=== PATIENT | male | born 1985 | race Caucasian/White ===

== ENCOUNTER 2020-12-24 09:47 | Outpatient (REF) | payer OTHER, SELFPAY ==
--- NOTE | 2020-12-24 09:56 | ECG_ITS ---
Test Reason : CHEST PAIN Blood Pressure : / mmHG Vent. Rate : 071 BPM Atrial Rate : 071 BPM P-R Int : 148 ms QRS Dur : 078 ms QT Int : 366 ms P-R-T Axes : 058 054 036 degrees QTc Int : 397 ms Normal sinus rhythm Normal ECG When compared with ECG of 15-DEC-2009 01:14, No significant change was found Referred By: Clay Angelo Electronically Signed By:ALEX CEE
[2020-12-24 10:45] LABS: MANUAL DIFF FLAG NO
[2020-12-24 11:02] LABS: Basophils Percent Auto 1.1 % (0-2); Eosinophils Absolute Auto 0.1 X10*3/uL (0.0-0.4); Eosinophils Percent Auto 3.8 % (0-4); Hematocrit 44.3 % (42-52); Hemoglobin 15.3 g/dl (14.0-18.0); Imm Gran Abs Auto 0.01 X10*3/uL (0.00-0.03); Imm Gran Pct Auto 0.3 % (0.0-0.4); Lymphocytes Absolute Auto 1.5 X10*3/uL (1.2-4.9); Lymphocytes Percent Auto 41.8 % (20-40); Mean Corpuscular HGB Conc 34.5 g/dl (31.0-36.0); Mean Corpuscular Hemoglobin 31.8 pg (27.0-33.0); Mean Corpuscular Volume 92.1 fL (80-98); Mean Platelet Volume 9.1 fL (9.4-12.4); Monocytes Absolute Auto 0.3 X10*3/uL (0.1-1.2); Neutrophils Absolute Auto 1.6 X10*3/uL (2.0-8.3); Platelet Count 190 X10*3/uL (160-400); Red Blood Count 4.81 X10*6/uL (4.60-5.80); Red Cell Distribution Width 11.4 % (11.0-16.0); White Blood Count 3.7 X10*3/uL (4.8-10.8)
[2020-12-24 11:16] LABS: Alanine Aminotransferase 29 U/L (0-40); Albumin Level 4.5 g/dL (3.5-5.0); Alkaline Phosphatase 73 U/L (39-117); Anion Gap 10 (12-20); Aspartate Amino Transferase 21 U/L (5-37); Bilirubin Total 0.6 mg/dL (0.0-1.0); Blood Urea Nitrogen 16 mg/dL (9-16); Calcium 9.2 mg/dL (8.4-10.2); Carbon Dioxide 26 mmol/L (22-29); Chloride 105 mmol/L (96-108); Cholesterol 202 mg/dL; Estimated Glomerular Filt Rate > 60; Glucose Fasting 98 mg/dL (60-99); HDL Cholesterol 53 mg/dL; LDL Cholesterol Calculated 135 mg/dl; Potassium 4.1 mmol/L (3.3-5.1); Sodium 137 mmol/L (135-145); Total Protein 7.2 g/dL (6.5-8.0); Triglycerides 73 mg/dL
[2020-12-24 11:23] LABS: Thyroid Stimulating Hormone 1.07 uIU/mL (0.32-4.0)
== END 2020-12-24 09:48 | disposition home or self-care (01) ==
LOC: HO.LAB 09:47
PROVIDERS: PCP Internal Medicine; Visit Provider Internal Medicine
DX: Z00.00 Encounter for general adult medical examination without abnormal findings (principal); E03.9 Hypothyroidism, unspecified; E11.9 Type 2 diabetes mellitus without complications
CPT/HCPCS: 36415; 80053; 80061; 84443; 85025; 93005

== ENCOUNTER 2021-04-20 13:29 | Emergency (ER) | payer OTHER, SELFPAY ==
--- NOTE | ~2021-04-20 | XR_ITS ---
EXAMINATION: XR CHEST CLINICAL INFORMATION: Cough with pneumonia COMPARISON: October 09, 2012 TECHNIQUE: AP portable view of the chest was obtained. FINDINGS: No significant abnormality is noted involving the heart, lungs, mediastinum, bony thorax or soft tissues. XR/XR chest 1V IMPRESSION: No acute disease.
[2021-04-20 13:59] VITALS: BP 116/68; PULSE 93; RESP 19; TEMP 37.2; O2SAT 98; BMI 25.1
--- NOTE | 2021-04-20 14:35 | ED_ITS ---
HPI - General Adult General Chief complaint: Dyspnea Stated complaint: pt tested positive for covid, difficulty breathing Time Seen by Provider: 04/20/21 13:51 Related Data Allergies Allergy/AdvReac Type Severity Reaction Status Date / Time No Known Allergies Allergy Verified 04/20/21 13:59 [facility] Family History Family History (Updated 01/23/21 @ 10:43 by Sosa Saha RMA) Mother No problems noted. Father No problems noted. Social History Social History (Updated 12/24/20 @ 09:20 by Natali Alva, [facility]) Alcohol intake: current Alcohol intake frequency: holidays/special occasions only Advance Directives: No Advance Directives Information Provided: No Physical Exam Vital Signs: Vital Signs: Last Vital Signs Temp 98.9 F 04/20/21 13:59 Pulse 93 04/20/21 13:59 Resp 19 04/20/21 13:59 BP 116/68 04/20/21 13:59 Pulse Ox 98 04/20/21 13:59 Body Mass Index 25.1 Course Course Course Narrative: Patient presents to the ED for constant coughing due to being covid+. Patient vital signs are stable. patient main complaint is coughing. patient denies any pleuretic chest pain. Chest xray ordered Discharge Plan Discharge Clinical Impression: COVID-19 Patient Disposition: Home, Self-Care Instructions: COVID-19 (Coronavirus Disease 2019) (ED) Additional Instructions: Strict home quarantine until all symptoms has resolved. Onset of symptoms greater than 1 week. No fever for at least 48 hours. Referrals: Clay Angelo MD [Primary Care Provider] - 2 days Stand Alone Forms: Work/School Release Interventions: ED Discharge Assessment Last Done: 04/20/21 15:52 Discharge Date/Time: 04/20/21 15:55
--- NOTE | 2021-04-20 15:28 | ED_ITS ---
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 He tested positive for coronavirus 4 days ago. Patient did not get vaccinated. Positive generalized malaise weakness. No history of diabetes. Related Data Allergies Allergy/AdvReac Type Severity Reaction Status Date / Time No Known Allergies Allergy Verified 04/20/21 13:59 Review of Systems Review of Systems: Positive coughing positive upper respiratory symptoms, positive fever Yes all other systems are reviewed and are negative [facility] Family History Family History (Updated 01/23/21 @ 10:43 by ISAIAS Ahumada) Mother No problems noted. Father No problems noted. Social History Social History (Updated 12/24/20 @ 09:20 by Natali Alva CMA) Alcohol intake: current Alcohol intake frequency: holidays/special occasions only Advance Directives: No Advance Directives Information Provided: No Physical Exam Vital Signs: Vital Signs: Last Vital Signs Temp 98.9 F 04/20/21 13:59 Pulse 93 04/20/21 13:59 Resp 19 04/20/21 13:59 BP 116/68 04/20/21 13:59 Pulse Ox 98 04/20/21 13:59 Body Mass Index 25.1 Appearance: Alert. Oriented X3. No acute distress. Eyes: Pupils equal, round and reactive to light. ENT: Pharynx normal. Neck: Normal inspection. Neck supple. No lymph nodes noted. No crepitus CVS: Normal heart rate and rhythm. Pulses normal. Normal S1 and S2 Respiratory: No respiratory distress. Breath sounds normal. No Wheezing. No rales Abdomen: Soft and nontender. No rigidity. No distention. good BS x4 Skin: Skin warm and dry. Normal skin color. Normal skin turgor. Extremities: No lower extremity edema. Neurovascular intact to all extremities. No Lacerations. No Rash Neuro: Oriented X 3. No motor deficit. No sensory deficit. Moving all extermities. No slurred speech MDM - SOB/Dyspnea MDM Narrative Medical decision making narrative: Well-appearing O2 sat is 98% on room air. Chest x-ray showed no focal infiltrate. Patient to be discharged home. Explained again patient needs to be vaccinated after the acute symptoms has subsided. Home isolation until all symptoms has resolved. No fever for at least 48 hours. Worsening condition return. Discharge Plan Discharge Clinical Impression: COVID-19 Patient Disposition: Home, Self-Care Instructions: COVID-19 (Coronavirus Disease 2019) (ED) Additional Instructions: Strict home quarantine until all symptoms has resolved. Onset of symptoms greater than 1 week. No fever for at least 48 hours. Referrals: Clay Angelo MD [Primary Care Provider] - 2 days Stand Alone Forms: Work/School Release
== END 2021-04-20 15:55 | disposition home or self-care (01) ==
PROVIDERS: Emergency Provider Emergency Medicine Emergency Medical Services; PCP Internal Medicine
DX: U07.1 COVID-19 (principal); R06.00 Dyspnea, unspecified; R05 Cough
CPT/HCPCS: 71045; 99283

== ENCOUNTER → 2021-05-11 09:20 | Outpatient (BNVA) | payer OTHER, SELFPAY | PROVIDERS: PCP Internal Medicine; Referring Provider Internal Medicine; Visit Provider Internal Medicine | DX: R07.2 Precordial pain (principal) | CPT/HCPCS: 99202 ==

== ENCOUNTER → 2021-05-14 10:08 | Outpatient (REF) | payer OTHER, SELFPAY ==
--- NOTE | 2021-05-14 10:11 | CA_ITS ---
Acquisition Time: 2021-05-14 10:09:00 Total Exercise Time: 00:08:39 Test Indications: CP, SOB Medications: SEE CHART Protocol: YENI Max HR: 160 BPM 87% of Pred: 183 BPM Max BP: 174/064 mmHG Max Work Load: 10.1 METS Exercise stress test with exercise 8 min 39 sec of Yeni protocol, with 3/10 mid chest discomfort at baseline which resolved with exercise, without arrythmia, with normotensive response to exercise, without EKG changes meeting criteria for ischemia. Test reviewed with Dr Martinez. Referred By: Luis Manuel Martinez Overread By: EDDA DE DIOS
== END ==
LOC: HO.CARD 10:08
PROVIDERS: Visit Provider Internal Medicine
DX: R07.2 Precordial pain (principal)
CPT/HCPCS: 93017

== ENCOUNTER → 2021-06-10 15:06 | Outpatient (REF) | payer OTHER, SELFPAY ==
--- NOTE | 2021-06-10 15:08 | CA_ITS ---
Transthoracic Echocardiogram Patient (Last, First, Middle): Jonathan Briggs, Gender: Male Date of : 1985 Age: 35 Procedure Date: 06/10/2021 Procedure Type: Transthoracic Echocardiogram Location: OP Height: 180.34 cm Weight: 83.92 kg BSA: 2.04 m2 Heart Rate: bpm BP: 130 / 80 mmHg Cobbler Upper: JORGE Yu MD: Luis Manuel Martinez MD Symptoms: R07.2 - Precordial pain Study Quality: Good ECG Rhythm: Sinus Conclusions: - The left ventricular systolic function is normal. The calculated ejection fraction is 62% by biplane method. - No obvious valvular pathology seen on this study. Findings Left Ventricle Normal left ventricular cavity size. There is normal left ventricular wall thickness. The left ventricular systolic function is normal. The calculated ejection fraction is 62% by biplane method. There is no evidence of regional wall motion abnormalities. Diastolic function is normal for age. Right Ventricle Normal right ventricular cavity size and systolic function. Atria Both atria are normal in size. Aortic Valve There is a normal trileaflet aortic valve. There is no aortic valve stenosis. There is no aortic valve regurgitation. Mitral Valve The mitral valve appears normal. There is no mitral valve regurgitation. There is no mitral valve stenosis. Pulmonic Valve The pulmonic valve was not well visualized. Tricuspid Valve Normal tricuspid valve structure. There is trace tricuspid valve regurgitation. The pulmonary artery systolic pressure is normal. Great Vessels The aortic annulus, sinuses of valsalva, and asc aorta are normal in size. Venous The inferior vena cava is normal in size and collapses greater than 50% with inspiration. Pericardium/Pleural There is no evidence of pericardial effusion. Prior Study Comparison No prior study available for comparison. Recommendations, Care & Conclusions No obvious valvular pathology seen on this study. Measurements 2D Linear Measurements IVSd: 0.85 0.6-0.9/0.6-1.0 cm LVIDd: 5.29 3.9-5.3/4.2-5.9 cm LVIDd Index: 2.59 2.4-3.2/2.2-3.1 cm/m2 LVIDs: 3.12 2.0-3.6 cm LVPWd: 0.79 0.7-1.1 cm Ao Root: 3.40 2.1-3.5 cm LA Diam: 3.60 2.7-3.8/3.0-4.0 cm LAIDs Index: 1.76 1.5-2.3 cm/m2 LV Mass: 190.67 67-162/88-224 g LV Mass Index: 93.47 43-95/49-115 g/m2 LVOT Diam: 2.10 3.0+(-)1.3 cm 2D Systolic Function EF 4C: 62.10 >55% EF 2C: 60.90 >55% EF BiP: 61.80 >55% Mitral Valve MV Pk E: 0.53 MV PK A: 0.54 MV Decel Time: 205.00 E/A: 1.00 E'Lateral: 14.50 E'Medial: 10.30 E/E' Med: 5.20 E/E' Lat: 3.70 PHT: 60.00 MVA PHT: 3.67 Decel Loup: 2.59 Aortic Valve AoV Pk Juan Carlos: 1.42 AoV Mn Juan Carlos: 0.99 AoV VTI: 0.29 AoV Pk Grad: 8.00 Aov Mn Grad: 4.00 CORONA Cont.VTI: 2.60 LVOT LVOT Pk Juan Carlos: 1.09 LVOT Mn Juan Carlos: 0.73 LVOT VTI: 0.22 LVOT Pk Grad: 5.00 LVOT Mn Grad: 2.00 LVOT Diam: 2.10 LVOT Area: 3.46 Diastolic Function MV Pk E: 0.53 MV Pk A: 0.54 E/A: 1.00 E'Medial: 10.30 E/E' Med: 5.20 E' Laterial: 14.50 E/E' Lat: 3.70 Right Ventricle TAPSE (mm): 2.43 TVS' Juan Carlos: 14.10 Tricuspid Valve TR Pk Jaun Carlos: 2.01 TR Pk Grad: 16.00 RA Press: 3.00 RVSP: 19.00 Great Vessels Aorta Ao Root-2D: 3.40 2.0-3.7 cm Ao Asc: 2.90 2.1-3.4 cm Ao Arch: 2.40 Updated in Other Vendor System with Status of Final Luis Manuel Martinez MD electronically signed on 06/11/2021 3:00:03 PM with status of Final
== END ==
LOC: HO.CARD 15:06
PROVIDERS: Visit Provider Internal Medicine
DX: R07.2 Precordial pain (principal)
CPT/HCPCS: 93306

== ENCOUNTER → 2021-06-16 14:40 | Outpatient (BNVA) | payer OTHER, SELFPAY | PROVIDERS: PCP Internal Medicine; Visit Provider Nurse Practitioner Family ==

== ENCOUNTER 2022-06-10 09:36 | Outpatient (REF) | payer OTHER, SELFPAY ==
[2022-06-10 10:26] LABS: MANUAL DIFF FLAG NO
[2022-06-10 11:05] LABS: Eosinophils Absolute Auto 0.1 X10*3/uL (0.0-0.4); Eosinophils Percent Auto 3.1 % (0-4); Hematocrit 46.2 % (42.0-52.0); Hemoglobin 15.3 g/dl (14.0-18.0); Imm Gran Abs Auto 0.02 X10*3/uL (0.00-0.03); Imm Gran Pct Auto 0.5 % (0.0-0.4); Lymphocytes Absolute Auto 1.7 X10*3/uL (1.2-4.9); Lymphocytes Percent Auto 41.6 % (20-40); Mean Corpuscular HGB Conc 33.1 g/dl (31.0-36.0); Mean Corpuscular Hemoglobin 30.3 pg (27.0-33.0); Mean Corpuscular Volume 91.5 fL (80.0-98.0); Mean Platelet Volume 8.9 fL (9.4-12.4); Monocytes Absolute Auto 0.3 X10*3/uL (0.1-1.2); Monocytes Percent Auto 8.2 % (2-11); Neutrophils Absolute Auto 1.9 x10*3/uL (2.0-8.3); Neutrophils Percent Auto 45.6 % (45-73); Platelet Count 177 X10*3/uL (160-400); Red Blood Count 5.05 X10*6/uL (4.60-5.80); Red Cell Distribution Width 12.1 % (11.0-16.0); White Blood Count 4.2 X10*3/uL (4.8-10.8)
[2022-06-10 11:39] LABS: Alanine Aminotransferase 36 U/L (0-40); Albumin Level 4.5 g/dL (3.5-5.0); Alkaline Phosphatase 68 U/L (39-117); Anion Gap 12 (12-20); Aspartate Amino Transferase 23 U/L (5-37); Bilirubin Total 0.4 mg/dL (0.0-1.0); Blood Urea Nitrogen 16 mg/dL (9-16); Calcium 9.6 mg/dL (8.4-10.2); Carbon Dioxide 28 mmol/L (22-29); Chloride 104 mmol/L (96-108); Cholesterol 220 mg/dL; Estimated Glomerular Filt Rate > 60; Glucose Fasting 102 mg/dL (60-99); HDL Cholesterol 58 mg/dL; LDL Cholesterol Calculated 151 mg/dl; Potassium 4.8 mmol/L (3.3-5.1); Sodium 139 mmol/L (135-145); Total Protein 7.2 g/dL (6.5-8.0); Triglycerides 59 mg/dL
== END 2022-06-10 09:37 | disposition home or self-care (01) ==
LOC: HO.LAB 09:36
PROVIDERS: PCP Internal Medicine; Visit Provider Internal Medicine
DX: I10 Essential (primary) hypertension (principal); E78.5 Hyperlipidemia, unspecified; Z13.0 Encounter for screening for diseases of the blood and blood-forming organs and certain disorders involving the immune mechanism
CPT/HCPCS: 36415; 80053; 80061; 85025

== ENCOUNTER 2023-06-13 08:59 | Outpatient (AMB) | payer OTHER, SELFPAY ==
[2023-06-13 09:01] VITALS: BP 102/74; PULSE 72; O2SAT 98; BMI 26.9
--- NOTE | 2023-06-13 09:01 | A.OFFPC_ITS ---
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 Social History Housing: House Alcohol intake: current Alcohol intake frequency: holidays/special occasions only Patient Tobacco Use Status: Never used Tobacco e-Cigarette/Vaping Use: Never Used Second Hand Smoke Exposure: No service: Yes Current occupational status: employed Cognitive needs: No Hearing needs: No Vision needs: No Questionnaire PHQ-9 Over the last 2 weeks, how often have you been bothered by any of the following problems? 1. Little interest or pleasure in doing things: not at all 2. Feeling down, depressed, or hopeless: not at all 3. Trouble falling or staying asleep, or sleeping too much: not at all 4. Feeling tired or having little energy: not at all 5. Poor appetite or overeating: not at all 6. Feeling bad about yourself - or that you are a failure or have let yourself or your family down: not at all 7. Trouble concentrating on things, such as reading the newspaper or watching television: not at all 8. Moving or speaking so slowly that other people could have noticed. Or the opposite - being so fidgety or restless that you have been moving around a lot more than usual: not at all 9. Thoughts that you would be better off or of hurting yourself in some way: not at all Total score: 0 Depression Screening Interpretation: Negative Source: Developed by Amanda Simmons [employer]enke and colleagues, with an educational laila from [employer]. Thrive Questionnaire Date Thrive assessed: 06/13/23 I am a: Patient What is your living situation today?: I have a steady place to live Within the past 12 months, did the food you bought not last and you didn't have the money to get more?: Never true Within the past 12 months, did you worry whether your food would run out before you got money to buy more?: Never true Do you have trouble paying for medicines?: No Do you have trouble getting transportation to medical appointments?: No Do you have trouble paying your heating and electricity bill?: No Do you have trouble taking care of your child, family member or friend?: No Do you have trouble with day-to-day activities such as bathing, preparing meals, shopping, managing finances, etc.?: No Are you currently unemployed and looking for a job?: No Are you interested in more education?: No Please select the resources that you would like help with: None AUDIT C Alcohol Use Questionnaire (AUDIT-C) 1. How often do you have a drink containing alcohol?: Never Total Score: 0 Score Reviewed/Action Taken: Yes CRISTOPHER-7 AMB Questionnaire CRISTOPHER-7 Date CRISTOPHER - 7 assessed: 06/13/23 Feeling nervous, anxious, or on edge: 0 = Not at all Not being able to stop or control worryin = Not at all Worrying too much about different things: 0 = Not at all Trouble relaxin = Not at all Being so restless that it is hard to sit still: 0 = Not at all Becoming easily annoyed or irritable: 0 = Not at all Feeling afraid as if something awful might happen: 0 = Not at all Total CRISTOPHER-7 score (0-4 normal; 5-9 mild; 10-14 moderate; 15-21 severe): 0 Source: Developed by Amanda Simmons Kurt Kroenke and colleagues, with an educational laila from [employer]. Review of Systems Const Denies chills, Denies fatigue, Denies headache(s) and Denies weight loss Eyes Denies change in vision, Denies diplopia and Denies eye pain ENT Denies vertigo, Denies dizziness, Denies headache(s) and Denies nasal discharge Card Denies chest pain, Denies rapid heart rate and Denies dyspnea on exertion Resp Denies chest congestion, Denies cough, Denies pain with cough and Denies dyspnea on exertion GI Denies abdominal pain, Denies hematochezia and Denies change in bowel habits Musc Denies myalgias, Denies arthralgias and Denies joint swelling Skin/Breast Denies lesions and Denies unusual bruising Neuro Denies vertigo, Denies dizziness, Denies headache(s) and Denies focal weakness Endo Denies fatigue Physical exam (Primary Care) Vital Signs: Last Vital Signs Pulse 72 06/13/23 09:01 BP 102/74 06/13/23 09:01 Pulse Ox 98 06/13/23 09:01 Oxygen Delivery Method Room Air 06/13/23 09:01 BMI result Body Mass Index 26.9 Tobacco/Smoking Status: Tobacco use Status Tobacco use date assessed 06/13/23 06/13/23 09:05 Patient Tobacco Use Status Never used Tobacco 06/13/23 09:05 e-Cigarette/Vaping Use Never Used 06/13/23 09:05 PHQ-9: PHQ-9 Score PHQ-9: Total score 0 06/13/23 09:06 Depression Screening Interpretation: Negative Thrive Assessment: Date of Thrive Assessment Date Thrive assessed 06/13/23 06/13/23 09:05 Const General: cooperative, healthy appearing and no acute distress Orientation/consciousness: oriented to person, oriented to place and oriented to time [facility] Head: Yes normal to inspection, Yes normocephalic and Yes atraumatic Mouth: Normal oral and palatal mucosa present and tongue normal Throat: Yes posterior oropharynx normal and Yes uvula midline Eyes General: appearance normal, both eyes and all related structures Neck Neck: Yes normal visual inspection, Yes full ROM and Yes no lymphadenopathy Thyroid: Thyroid normal Carotids: normal carotid upstroke Chest Chest palpation & inspection: normal inspection of the chest Resp Effort & Inspection: normal respiratory effort and able to speak in complete sentences Auscultation: clear to auscultation bilaterally Cardio Jugular venous distension: no JVD Palpation: normal PMI Rate: regular rate Rhythm: regular rhythm Heart sounds: S1 normal heart sound present and S2 normal heart sound present GI Inspection: Yes normal to inspection Palpation (GI): Soft to palpation and No hepatosplenomegaly present Auscultation: normal bowel sounds General: Yes no CVA tenderness Back/Spine/Pelvis Back: no CVA tenderness Skin General skin exam: no rashes or lesions noted Neuro General: oriented to person, oriented to place and oriented to time Extrem General: Yes normal to inspection and Yes full ROM Office Procedures Flu Questionnaire Does the patient have a severe egg allergy?: No Does the patient have severe life threatening allergies?: No Does the patient have a fever or illness today?: No Has the patient ever had Guillain-[place] Syndrome?: No Has the patient ever had any past reaction to a flu shot?: No Immunizations flu vacc [id number] 6mos up(PF) 60 mcg(15 mcgx4)/0.5 mL IM syringe Performing Provider: Clay Angelo MD [facility] Documented (not given) by: ISAIAS Gonzalez on 06/13/23 09:06 Reason Not Given: Patient Refused Assessment and Plan Assessment & Plan (1) Physical exam: Code(s): Z00.00 - Encounter for general adult medical examination without abnormal findings Plan: stable; do labs Orders: Orders Influenza [id number] Immunization Today Z23 - Encounter for immunization Lipid Panel Today E78.5 - Hyperlipidemia, unspecified Complete Blood Count Auto Diff Today D64.9 - Anemia, unspecified Comprehensive Java. Panel Fast Today N28.9 - Disorder of kidney and ureter, unspecified Coding Level of Care Code New Pt Prev Care 18-39yr([id number] Diagnoses Physical exam Z00.00 Additional Codes PHQ-9 - 67846 - PHQ-9 Billing: ([id number])
== END 2023-06-13 09:16 | disposition home or self-care (01) ==
PROVIDERS: Visit Provider Internal Medicine
DX: Z00.00 Encounter for general adult medical examination without abnormal findings (principal)
CPT/HCPCS: 99385; 99395

== ENCOUNTER 2023-06-13 09:34 | Outpatient (REF) | payer OTHER, SELFPAY ==
[2023-06-13 09:49] LABS: MANUAL DIFF FLAG NO
[2023-06-13 10:04] LABS: Basophils Percent Auto 0.7 % (0-2); Eosinophils Absolute Auto 0.1 X10*3/uL (0.0-0.4); Eosinophils Percent Auto 2.2 % (0-4); Hematocrit 44.6 % (42.0-52.0); Imm Gran Abs Auto 0.02 X10*3/uL (0.00-0.03); Imm Gran Pct Auto 0.5 % (0.0-0.4); Lymphocytes Absolute Auto 1.5 X10*3/uL (1.2-4.9); Lymphocytes Percent Auto 35.8 % (20-40); Mean Corpuscular HGB Conc 33.6 g/dl (31.0-36.0); Mean Corpuscular Hemoglobin 31.6 pg (27.0-33.0); Mean Corpuscular Volume 93.9 fL (80.0-98.0); Monocytes Absolute Auto 0.4 X10*3/uL (0.1-1.2); Monocytes Percent Auto 9.1 % (2-11); Neutrophils Absolute Auto 2.2 x10*3/uL (2.0-8.3); Neutrophils Percent Auto 51.7 % (45-73); Platelet Count 201 X10*3/uL (160-400); Red Blood Count 4.75 X10*6/uL (4.60-5.80); White Blood Count 4.2 X10*3/uL (4.8-10.8)
[2023-06-13 10:44] LABS: Alanine Aminotransferase 20 U/L (0-40); Albumin Level 4.2 g/dL (3.5-5.0); Alkaline Phosphatase 62 U/L (39-117); Anion Gap 12 (12-20); Aspartate Amino Transferase 22 U/L (5-37); Bilirubin Total 0.3 mg/dL (0.0-1.0); Blood Urea Nitrogen 15 mg/dL (9-16); Calcium 9.4 mg/dL (8.4-10.2); Carbon Dioxide 25 mmol/L (22-29); Chloride 106 mmol/L (96-108); Cholesterol 213 mg/dL (<200); Estimated Glomerular Filt Rate > 60; Glucose Fasting 100 mg/dL (60-99); HDL Cholesterol 61 mg/dL (>40); LDL Cholesterol Calculated 142 mg/dL (<100); Potassium 4.4 mmol/L (3.3-5.1); Sodium 139 mmol/L (135-145); Total Protein 6.9 g/dL (6.5-8.0); Triglycerides 50 mg/dL (<150)
== END 2023-06-13 09:35 | disposition home or self-care (01) ==
LOC: HO.LAB 09:34
PROVIDERS: PCP Internal Medicine; Visit Provider Internal Medicine
DX: E78.5 Hyperlipidemia, unspecified (principal); N28.9 Disorder of kidney and ureter, unspecified; D64.9 Anemia, unspecified
CPT/HCPCS: 36415; 80053; 80061; 85025

== ENCOUNTER 2024-06-11 22:15 | Emergency (ER) | payer OTHER, SELFPAY ==
--- NOTE | ~2024-06-11 | XR_ITS ---
EXAMINATION: XR CHEST CLINICAL INFORMATION: Chest pain COMPARISON: 04/20/2021 TECHNIQUE: 2 views of the chest were obtained. FINDINGS: No significant abnormality is noted involving the heart, lungs, mediastinum, bony thorax or soft tissues. XR/XR chest 2V IMPRESSION: No acute processes. Electronically signed by: Celio Lawton MD 06/11/2024 11:26 PM EDT RP
--- NOTE | 2024-06-11 22:18 | ECG_ITS ---
Test Reason : CHEST PAIN Blood Pressure : / mmHG Vent. Rate : 069 BPM Atrial Rate : 069 BPM P-R Int : 152 ms QRS Dur : 078 ms QT Int : 388 ms P-R-T Axes : 059 035 040 degrees QTc Int : 415 ms Normal sinus rhythm Normal ECG When compared with ECG of 24-DEC-2020 10:02, No significant change was found Referred By: Generic ED Physician Electronically Signed By:MABLE MAYS
[2024-06-11 22:31] VITALS: BP 128/70; PULSE 66; RESP 20; TEMP 36.2; O2SAT 99; BMI 25.1
[2024-06-11 22:33] LABS: MANUAL DIFF FLAG NO
[2024-06-11 22:35] LABS: Basophils Percent Auto 0.8 % (0-2); Eosinophils Absolute Auto 0.1 X10*3/uL (0.0-0.4); Eosinophils Percent Auto 2.7 % (0-4); Hematocrit 39.7 % (42.0-52.0); Hemoglobin 13.8 g/dl (14.0-18.0); Imm Gran Abs Auto 0.01 X10*3/uL (0.00-0.03); Imm Gran Pct Auto 0.2 % (0.0-0.4); Lymphocytes Absolute Auto 2.4 X10*3/uL (1.2-4.9); Lymphocytes Percent Auto 48.5 % (20-40); Mean Corpuscular HGB Conc 34.8 g/dl (31.0-36.0); Mean Corpuscular Hemoglobin 31.7 pg (27.0-33.0); Mean Corpuscular Volume 91.3 fL (80.0-98.0); Mean Platelet Volume 8.7 fL (9.4-12.4); Monocytes Absolute Auto 0.4 X10*3/uL (0.1-1.2); Monocytes Percent Auto 8.4 % (2-11); Neutrophils Absolute Auto 1.9 x10*3/uL (2.0-8.3); Neutrophils Percent Auto 39.4 % (45-73); Platelet Count 168 X10*3/uL (160-400); Red Blood Count 4.35 X10*6/uL (4.60-5.80); Red Cell Distribution Width 11.9 % (11.0-16.0); White Blood Count 4.9 X10*3/uL (4.8-10.8)
[2024-06-11 22:48] LABS: Anion Gap 12 (12-20); Blood Urea Nitrogen 22 mg/dL (9-16); Calcium 9.4 mg/dL (8.4-10.2); Carbon Dioxide 23 mmol/L (22-29); Chloride 108 mmol/L (96-108); Creatinine Clr Calc Pharmacy 112.4; Estimated Glomerular Filt Rate > 60; Glucose Random 121 mg/dL (60-115); Potassium 3.8 mmol/L (3.3-5.1); Sodium 139 mmol/L (135-145)
[2024-06-11 22:56] LABS: Troponin-I High Sensitivity < 2.7 ng/L (<3.5-35.0)
[2024-06-12 00:56] VITALS: BP 114/71; PULSE 60; RESP 15; TEMP 36.6; O2SAT 99
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
[2024-06-12 03:12] VITALS: BP 131/80; PULSE 61; RESP 17; TEMP 36.6; O2SAT 97
[2024-06-12 03:19] VITALS: BP 131/80; PULSE 61; RESP 17; TEMP 36.6; O2SAT 97
== END 2024-06-12 03:15 | disposition home or self-care (01) ==
PROVIDERS: Emergency Provider Emergency Medicine
DX: R07.89 Other chest pain (principal)
CPT/HCPCS: 36415; 71046; 80048; 84484; 85025; 93005; 99284; 99285

== ENCOUNTER 2024-06-19 09:06 | Outpatient (AMB) | payer OTHER, SELFPAY ==
[2024-06-19 09:07] VITALS: BP 114/62; PULSE 80; O2SAT 96; BMI 25.9
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
== END 2024-06-19 09:35 | disposition home or self-care (01) ==
PROVIDERS: PCP Internal Medicine; Visit Provider Internal Medicine
DX: Z00.00 Encounter for general adult medical examination without abnormal findings (principal)

== ENCOUNTER → 2024-06-19 09:06 | Outpatient (BNVA) | payer OTHER, SELFPAY | PROVIDERS: PCP Internal Medicine; Visit Provider Internal Medicine | DX: Z00.00 Encounter for general adult medical examination without abnormal findings (principal) | CPT/HCPCS: 96127; 99396 ==

== ENCOUNTER 2025-03-12 11:32 | Outpatient (AMB) | payer OTHER, SELFPAY ==
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
[2025-03-12 11:38] VITALS: BP 128/76; PULSE 86; TEMP 36.3; O2SAT 98; BMI 26.4
== END 2025-03-12 12:03 | disposition home or self-care (01) ==
LOC: HO.HMCH 11:33
PROVIDERS: PCP Internal Medicine; Visit Provider Physician Assistant
DX: F51.02 Adjustment insomnia (principal); M25.50 Pain in unspecified joint; Z13.1 Encounter for screening for diabetes mellitus

== ENCOUNTER → 2025-03-12 11:32 | Outpatient (BNVA) | payer OTHER, SELFPAY | PROVIDERS: PCP Internal Medicine; Visit Provider Physician Assistant | DX: F51.02 Adjustment insomnia (principal); M25.50 Pain in unspecified joint | CPT/HCPCS: 96127; 99212 ==

== ENCOUNTER 2025-03-13 09:51 | Outpatient (REF) | payer OTHER, SELFPAY ==
[2025-03-13 10:34] LABS: Hematocrit 43.6 % (42.0-52.0); Hemoglobin 14.9 g/dl (14.0-18.0); Mean Corpuscular HGB Conc 34.2 g/dl (31.0-36.0); Mean Corpuscular Hemoglobin 31.0 pg (27.0-33.0); Mean Corpuscular Volume 90.8 fL (80.0-98.0); NRBC Abs Auto 0.000 X10*3/uL (0.0-0.012); NRBC Pct Auto 0.0 /100WBC (0.0-0.2); Platelet Count 175 X10*3/uL (160-400); Red Blood Count 4.80 X10*6/uL (4.60-5.80); White Blood Count 4.0 X10*3/uL (4.8-10.8)
[2025-03-13 11:06] LABS: Alanine Aminotransferase 40 U/L (0-40); Albumin Level 4.7 g/dL (3.5-5.0); Alkaline Phosphatase 64 U/L (39-117); Anion Gap 11 (12-20); Aspartate Amino Transferase 26 U/L (5-37); Blood Urea Nitrogen 16 mg/dL (9-16); Calcium 9.0 mg/dL (8.4-10.2); Carbon Dioxide 27 mmol/L (22-29); Chloride 108 mmol/L (96-108); Estimated Glomerular Filt Rate > 60; Potassium 4.5 mmol/L (3.3-5.1); Sodium 141 mmol/L (135-145); Total Protein 7.2 g/dL (6.5-8.0)
[2025-03-19 21:24] LABS: Anti Nuclear Antibody Pattern Nuclear, Speckled; Anti Nuclear Antibody Screen POSITIVE (NEGATIVE); Anti Nuclear Antibody Titer 1:40 titer
== END 2025-03-13 09:52 | disposition home or self-care (01) ==
LOC: HO.LAB 09:51
PROVIDERS: PCP Physician Assistant; Visit Provider Physician Assistant
DX: Z13.1 Encounter for screening for diabetes mellitus (principal); M25.50 Pain in unspecified joint
CPT/HCPCS: 36415; 80053; 85027; 86038; 86039; 86200; 86225; 86431